=== PATIENT | female | born 1965 | race African-American/Black ===

== ENCOUNTER 2024-11-27 11:35 | Outpatient (CLI) | payer BC ==
[2024-11-27 12:48] LABS: #Basophils 0.03 10x3/uL (0.0-0.2); %Basophils 0.4 % (0.0-1.0); %Monocytes 12.8 % (0.0-10.0); %Neutrophils 45.7 % (42.0-75.0); Hematocrit 40.6 % (36.0-47.0); Hemoglobin 13.2 g/dL (12.0-16.0); Mean Corpuscular HGB CONC 32.5 g/dL (32.0-36.0); Mean Corpuscular Hemoglobin 29.7 pg (27.0-31.0); Mean Corpuscular Volume 91.2 fL (78.0-98.0); Mean Platelet Volume 10.7 fL (7.4-10.4); Platelet Count 306 10x3/uL (130-400); RBC Distribution Width 13.5 % (11.5-14.5); Red Blood Cell (RBC) Count 4.45 mill/uL (4.20-5.40)
[2024-11-27 13:02] LABS: INR-International Normal Ratio 1.1; Prothrombin Time 14.4 sec (12.0-14.7)
[2024-11-27 13:04] LABS: Anion Gap 14 mmol/L (10-20); BUN (Urea Nitrogen) 17 mg/dL (9.8-20.1); Calc. Creatinine Clearance 0 mL/min (70-130); Calcium 9.8 mg/dL (7.8-10.44); Carbon Dioxide 26 mmol/L (22-29); Chloride 104 mmol/L (98-107); Estimated GFR 103; Glucose 132 mg/dL (70-105); Potassium 3.9 mmol/L (3.5-5.1); Sodium 140 mmol/L (136-145)
== END 2024-11-27 11:36 | disposition home or self-care (01) ==
LOC: LABBT 11:35
PROVIDERS: ATTEND Orthopaedic Surgery
DX: Z01.818 Encounter for other preprocedural examination (principal); M16.11 Unilateral primary osteoarthritis, right hip
CPT/HCPCS: 80048; 85025; 85610; 87081; 93005; 93010

== ENCOUNTER 2024-12-04 05:36 | Observation (INO) | payer BC ==
[2024-11-27 12:02] VITALS: BMI 42.7
[2024-12-04] MEDS ORDERED: Vancomycin (BATCH) 2 GM in Premix 1 BAG IVPB SCH (06:00)
[2024-12-04] MEDS ORDERED: Tranexamic Acid 1,000 MG/10 ML VIAL ONE (06:26)
[2024-12-04] MEDS ORDERED: Sodium Chloride 0.9% 100 ML ONE (06:26)
[2024-12-04] MEDS ORDERED: fentaNYL PF 100 MCG/2 ML SYRINGE ONE (06:35)
[2024-12-04] MEDS ORDERED: PROPOFOL 40 ML ONE (06:35)
[2024-12-04] MEDS ORDERED: Midazolam HCl 2 mg/2 ml Vial ONE (06:36)
[2024-12-04] MEDS ORDERED: CEFAZOLIN 2 GM VIAL ONE (07:01)
[2024-12-04] MEDS ORDERED: Fentanyl 250 MCG/5 ML VIAL ONE (07:41)
[2024-12-04] MEDS ORDERED: Rocuronium Bromide 10 MG/ML (10ML VIAL) ONE (07:50)
[2024-12-04] MEDS ORDERED: PHENYLEPHRINE-NS 100 MCG/ML 10 ML SYRINGE ONE (07:50)
[2024-12-04] MEDS ORDERED: Lidocaine 1% PF 5 ML VIAL ONE (07:50)
[2024-12-04] MEDS ORDERED: Dexamethasone 4 mg/ml Vial ONE (08:05)
[2024-12-04] MEDS ORDERED: Ondansetron PF 4 MG/2 ML Vial ONE (08:05)
[2024-12-04] MEDS ORDERED: SUGAMMADEX SODIUM 200 MG/2 ML VIAL ONE (09:06)
[2024-12-04] MEDS ORDERED: Acetaminophen 325 MG TAB PO PRN (09:21)
[2024-12-04] MEDS ORDERED: Ondansetron PF 4 MG/2 ML Vial IVP PRN ×2 (09:21→10:45)
[2024-12-04] MEDS ORDERED: Promethazine HCl 25 MG/ML VIAL IM PRN ×2 (09:21→10:45)
[2024-12-04] MEDS ORDERED: Zolpidem Tartrate 5 MG TAB PO PRN (09:21)
[2024-12-04] MEDS ORDERED: diphenhydrAMINE 25 MG CAP PO PRN ×2 (09:21→10:45)
[2024-12-04] MEDS ORDERED: Ketorolac Tromethamine 30 MG (1 mL) VIAL IVP PRN (09:54)
[2024-12-04] MEDS ORDERED: HYDROcodone/Acetaminophen 10/325 mg Tablet PO PRN (09:54)
[2024-12-04] MEDS ORDERED: Fentanyl 100 MCG/2 ML VIAL SLOW IVP PRN (09:55)
[2024-12-04] MEDS ORDERED: fentaNYL 50 mcg/mL 1 mL Vial ONE ×4 (10:07→11:20)
[2024-12-04] MEDS ORDERED: fentaNYL 50 mcg/mL 1 mL Vial SLOW IVP PRN (10:27)
[2024-12-04] MEDS ORDERED: diphenhydrAMINE 50 MG/ML VIAL IM/IV PRN (10:45)
[2024-12-04] MEDS ORDERED: Naloxone HCl 0.4 mg/ml Vial IV PRN (10:45)
[2024-12-04] MEDS: Aspirin 81 mg Enteric Coated Tablet PO SCH (12:12)
[2024-12-04] MEDS: Multivitamin W/ Minerals 1 TAB PO SCH (12:12)
[2024-12-04] MEDS: Sodium Chloride 0.9% 1,000 ML IV SCH (12:12)
[2024-12-04] MEDS: Ferrous Gluconate 324 MG TAB PO SCH (12:12)
[2024-12-04] MEDS: Ketorolac Tromethamine 30 MG (1 mL) VIAL IVP SCH (12:12)
[2024-12-04] MEDS: Senokot S 8.6-50 MG TAB PO SCH (12:12)
[2024-12-04] MEDS: CEFAZOLIN 2 GM in Sodium Chloride 0.9% 100 ML IVPB SCH (14:31)
[2024-12-04] MEDS: FLU (Fluarix Triv) TS24-25(6MOS UP)/PF 45 MCG/0.5 ML Syringe IM ONE (17:11)
[2024-12-05 06:06] LABS: Hematocrit 34.6 % (36.0-47.0); Hemoglobin 10.9 g/dL (12.0-16.0); Mean Corpuscular HGB CONC 31.5 g/dL (32.0-36.0); Mean Corpuscular Hemoglobin 29.7 pg (27.0-31.0); Mean Corpuscular Volume 94.3 fL (78.0-98.0); Mean Platelet Volume 10.7 fL (7.4-10.4); Platelet Count 259 10x3/uL (130-400); RBC Distribution Width 13.5 % (11.5-14.5); Red Blood Cell (RBC) Count 3.67 mill/uL (4.20-5.40)
[2024-12-05 06:23] LABS: Anion Gap 12 mmol/L (10-20); BUN (Urea Nitrogen) 12 mg/dL (9.8-20.1); Calc. Creatinine Clearance 207 mL/min (70-130); Calcium 8.8 mg/dL (7.8-10.44); Carbon Dioxide 26 mmol/L (22-29); Chloride 106 mmol/L (98-107); Estimated GFR 104; Glucose 127 mg/dL (70-105); Potassium 4.5 mmol/L (3.5-5.1); Sodium 139 mmol/L (136-145)
[2024-12-05] MEDS: metFORMIN 500 MG TAB PO SCH (08:41)
[2024-12-05] MEDS: Atorvastatin Calcium 20 MG TAB PO SCH (08:42)
[2024-12-05] MEDS: Amlodipine 5 MG TAB PO SCH (08:42)
[2024-12-05] MEDS ORDERED: fentaNYL 50 mcg/mL 1 mL Vial SLOW IVP PRN (09:54)
[2024-12-05] MEDS: HYDROcodone/Acetaminophen 10/325 mg Tablet PO PRN (13:09)
[2024-12-06 05:43] LABS: Hematocrit 31.9 % (36.0-47.0); Hemoglobin 9.9 g/dL (12.0-16.0); Mean Corpuscular Hemoglobin 29.6 pg (27.0-31.0); Mean Corpuscular Volume 95.2 fL (78.0-98.0); Platelet Count 250 10x3/uL (130-400); RBC Distribution Width 13.7 % (11.5-14.5); Red Blood Cell (RBC) Count 3.35 mill/uL (4.20-5.40)
[2024-12-06 08:24] VITALS: BP 126/72; TEMP 97.6
[2024-12-06] MEDS: HYDROcodone/Acetaminophen 10/325 mg Tablet PO PRN (10:50)
== END 2024-12-06 11:05 | disposition home or self-care (01) ==
LOC: SDC 05:36 → INTOOBSV 09:24 → SURG B 09:24
PROVIDERS: ADMIT Orthopaedic Surgery; ATTEND Orthopaedic Surgery
PROC: 0SR90JZ Replacement of Right Hip Joint with Synthetic Substitute, Open Approach (ICD-10-PCS; principal; 2024-12-06)
DX: M16.11 Unilateral primary osteoarthritis, right hip (principal); I10 Essential (primary) hypertension; E11.9 Type 2 diabetes mellitus without complications; E78.5 Hyperlipidemia, unspecified; G47.30 Sleep apnea, unspecified; Z90.710 Acquired absence of both cervix and uterus; Z90.49 Acquired absence of other specified parts of digestive tract; Z79.82 Long term (current) use of aspirin; Z79.1 Long term (current) use of non-steroidal anti-inflammatories (NSAID); Z79.899 Other long term (current) drug therapy
CPT/HCPCS: 36415; 36416; 72170; 80048; 85027; C1713; C1776; J1100; J1885; J2250; J2270; J2405; J2704; J3010; J3370; J7030; J7070